=== PATIENT | female | born 1995 | race Hispanic/Latino ===

== ENCOUNTER 2020-10-25 15:19 | Emergency (ER) | payer SELFPAY ==
[~2020-10-25] VITALS: Ht 160 cm; Wt 99.5 kg
[2020-10-25] MEDS ORDERED: SODIUM CHLORIDE 0.9% 1000ML 1,000 ML IV STA (15:28)
[2020-10-25] MEDS ORDERED: SODIUM CHLORIDE 0.9% 1000ML 1,000 ML ONE (16:28)
== END 2020-10-25 17:13 | disposition home or self-care (01) ==
LOC: FSED 15:27
DX: N93.8 Other specified abnormal uterine and vaginal bleeding (principal)
CPT/HCPCS: 99283; J7030; 80053; 81003; 81025; 85025

== ENCOUNTER 2021-06-05 17:35 | Emergency (ER) | payer MEDICARE ==
[~2021-06-05] VITALS: Ht 160 cm; Wt 99.8 kg
== END 2021-06-05 21:40 | disposition home or self-care (01) ==
LOC: FSED 20:11
DX: O20.9 Hemorrhage in early pregnancy, unspecified (principal)
CPT/HCPCS: 81003; 81025; 99282